=== PATIENT | male | born 1960 | race Caucasian/White ===

== ENCOUNTER → 2022-02-26 15:25 | Outpatient (BNVA) | payer SELFPAY | PROVIDERS: PCP Family Medicine; Visit Provider Thoracic Surgery (Cardiothoracic Vascular Surgery) | DX: Z01.89 Encounter for other specified special examinations (principal) | CPT/HCPCS: 87070 ==

== ENCOUNTER → 2023-02-12 09:29 | Outpatient (BNVA) | payer BC, SELFPAY | PROVIDERS: PCP Family Medicine; Visit Provider Nurse Practitioner Family | DX: L02.31 Cutaneous abscess of buttock (principal) | CPT/HCPCS: 87070 ==

== ENCOUNTER 2023-02-19 09:01 | Outpatient (CLI) | payer BC, MEDICAID, SELFPAY ==
[2023-02-19 09:24] LABS: Basophils % 0.2 %; Eosinophils # 0.2 10^3/uL (0.0-0.8); Eosinophils % 4.1 %; Hematocrit 36.9 % (42.0-52.0); Hemoglobin 11.7 g/dL (11.7-16.6); Lymphocytes # 0.8 10^3/uL (0.8-4.8); Lymphocytes % 17.9 %; Mean Corpuscular HGB Conc 31.7 g/dL (30.0-36.0); Mean Corpuscular Hemoglobin 29.7 pg (28.0-34.0); Mean Corpuscular Volume 93.7 fl (80-94); Mean Platelet Volume 10.6 fL (7.4-10.4); Monocytes # 0.4 10^3/uL (0.2-0.9); Neutrophils # 3.14 10^3/uL (1.8-7.7); Neutrophils % 67.1 %; Nucleated Red Blood Cells % 0 %; Platelet Count 151 10^3/cmm (130-400); Red Blood Count 3.94 10^6/uL (4.1-5.3); Red Cell Distribution Width 13.4 % (12.1-15.1); White Blood Count 4.7 10^3/uL (4.0-10.0)
[2023-02-19 09:47] LABS: Alanine Aminotransferase 15 U/L (0-41); Alkaline Phosphatase 161 U/L (40-130); Anion Gap 12.4 (5-19); Aspartate Amino Transferase 20 U/L (0-40); Blood Urea Nitrogen 21 mg/dL (8-23); Calcium 8.2 mg/dL (8.5-10.5); Carbon Dioxide 27 mmol/L (22-29); Chloride 96 mmol/L (98-107); Globulin 4.1 g/dL (1.3-4.6); Glomerular Filtration Rate 67.6 mL/min (90-130); Glucose 475 mg/dL (65-115); Osmolality Calculated 294 mOsm/kg (285-295); Potassium 5.4 mmol/L (3.5-5.1); Sodium 130 mmol/L (136-145); Total Bilirubin 0.3 mg/dL (0.15-1.2); Total Protein 7.1 g/dL (6.6-8.7)
== END 2023-02-19 09:02 | disposition home or self-care (01) ==
LOC: LAB 09:07
PROVIDERS: PCP Registered Nurse; Visit Provider Nurse Practitioner Family
DX: L02.31 Cutaneous abscess of buttock (principal)
CPT/HCPCS: 36415; 80053; 85025

== ENCOUNTER 2023-03-18 10:39 | Day surgery (SDC) | payer BC, MEDICAID, SELFPAY ==
[2023-03-15 15:48] VITALS: BMI 43.9
[2023-03-18] VITALS (9 sets, daily range): BP systolic 95–129; BP diastolic 59–79; PULSE 60–70; RESP 12–17; TEMP 36.1–36.3; O2SAT 94–100
[2023-03-18 11:20] LABS: Glucose Point of Care 276 mg/dL (70-110)
[2023-03-18] MEDS: sodium chloride 0.9% 1,000 ML 30 ML IV (11:26)
--- NOTE | 2023-03-18 11:56 | W.PM.OPSUD ---
Surgery/Procedure H&P Update DATE OF PROCEDURE: March 18, 2023 DATE H&P PERFORMED: 03/14/23 H&P UPDATE INFORMATION: I have reviewed H&P completed within last 30 days, I have examined patient prior to procedure and No changes to prior documentation PLANNED PROCEDURE: Operation Date: 03/18/23 13:30 Proposed Procedures p debridement of wound of left buttock 71029,T14.8XXA,L02.31(Left) - Finn Roberts DO
--- NOTE | 2023-03-18 12:56 | ANES.PREANE2 ---
Pre-Anesthetic Assessment Height/Weight: Height 1.75 m Weight 135.171 kg Temp Pulse Resp BP Pulse Ox O2 Del Method 97 F L 69 16 129/79 97 Room Air 03/18/23 11:22 03/18/23 11:22 03/18/23 11:22 03/18/23 11:22 03/18/23 11:22 03/18/23 11:22 Operation Date: 03/18/23 13:30 Proposed Procedures p debridement of wound of left buttock [id number],T14.8XXA,L02.31(Left) - Finn Roberts DO Familial anesthetic complications: none Was Beta Leigh taken within 24 hours: Yes Was Clonidine taken within 24 hours: N/A Last intake: Intake Last Liquid Date 03/18/23 Last Liquid Time 04:00 Last Solid Date 03/17/23 Last Solid Time 16:00 Social No alcohol and No tobacco Exam alert, oriented x 3, clear to auscultation bilaterally and regular rate & rhythm Airway Submandibular: within normal limits Cervical ROM: within normal limits Mallampati: Class II Dentition: chipped (everything chipped, very poor dentition) CV/HEM Hypertension Metabolic Hyperlipidemia and Morbid Obesity Anesthetic Plan ASA status: 3 Anesthesia: General Medications/Allergies Home Medications Medication Instructions Recorded Confirmed Last Taken Type hydrocodone 5 mg-acetaminophen 325 1 tab PO BID PRN pain 1 week #14 03/07/22 03/15/23 03/17/23 Rx mg tablet tabs aspirin 81 mg capsule 81 mg PO DAILY 03/14/23 03/15/23 03/17/23 History furosemide 40 mg tablet 40 mg PO BID 03/14/23 03/15/23 03/17/23 History glipizide 10 mg tablet 10 mg PO BID 03/14/23 03/15/23 03/16/23 History metoprolol succinate 50 mg 50 mg PO DAILY 03/14/23 03/15/23 03/18/23 History tablet,extended release 24 hr sacubitril 49 mg-valsartan 51 mg 1 tab PO BID 03/14/23 03/15/23 03/18/23 History tablet (Entresto) simvastatin 20 mg tablet 20 mg PO DAILY 03/14/23 03/15/23 03/17/23 History spironolactone 25 mg tablet 25 mg PO DAILY 03/14/23 03/15/2303/17/23 History Allergies Allergy/AdvReac Type Severity Reaction Status Date / Time No Known Drug Allergies Allergy Unknown Verified 02/19/22 14:58 Current Medications Generic Name Dose Route Start Last Admin Trade Name Michaelq PRN Reason Stop Dose Admin Sodium Chloride 1,000 mls @ 30 mls/hr 03/18/23 11:00 03/18/23 11:26 Sodium Chloride 0.9% IV 03/19/23 10:59 30 mls/hr .Q24H JES Administration PFSH Anesthesia Family History Father CHF (congestive heart failure) Social History Smoking and tobacco status: never smoked Alcohol intake: current Alcohol intake frequency: holidays/special occasions only Data Anesthesia Cardiac Studies: No Data to Display
[2023-03-18] MEDS: ceFAZolin 2,000 MG in sodium chloride 0.9% (plus) 50 ML 100 MG IV (13:55)
[2023-03-18] MEDS: lidocaine-epi 2% 20 mL INJ INJECTION (14:50)
--- NOTE | 2023-03-18 14:50 | PM.OP ---
Operative Report Date of procedure: March 18, 2023 Pre-op diagnosis: Chronic wound left buttock Post-op diagnosis: same Procedure done: Sharp excisional debridement of chronic wound left buttock 10 cm x 6 cm x 2 cm deep Implants: Curlex dressing Specimens removed/disposition: Calcified fibrinous tissue Surgeon: Dr. Finn Roberts DO Anesthesia: General Estimated blood loss (mL): 20 Complications: None apparent Brief History: This is a very pleasant 62-year-old gentleman who presented to my office with a chronic wound of his left buttock. Debridement was indicated. The risk and benefits were explained and documented. Procedure: Patient was wheeled in operative room and remained in his hospital bed. General tracheal intubation was achieved by the department of anesthesia. He was put into the right lateral decubitus position. A timeout was performed. All present were in agreement. The left buttock was inspected prepped and draped in usual sterile fashion. A metal probe was then inserted into the wound and it tracked 10 cm medially. 2% lidocaine with epinephrine was used to anesthetize the skin over this tract. A 10 blade scalpel was then used to incise this 10 cm tract. Electrocautery was used to dissect down to an open pocket there is an open pocket about 1 and half to 2 cm deep that measured 10 cm in length and 6 cm in width. It tunnels 5 cm cephalad. There was some purulent material in this pocket along with a significant amount of calcified fibrinous tissue. The tissue was debrided with Bovie cautery and curettes. Only healthy pink bleeding tissue was left. Electrocautery was used to maintain hemostasis. The wound was irrigated and then packed with wet Kerlix covered by dry 4 x 4 gauze and an ABD. Patient tolerated procedure well.
--- NOTE | 2023-03-18 15:39 | ANE.PACU2 ---
Inpatient post-anesthesia follow up: Airway intact: Yes Vital signs: Temperature 97.4 F Pulse Rate 69 Respiratory Rate 16 Blood Pressure 103/66 Pulse Oximetry 99 Oxygen Delivery Me thod Room Air Oxygen Flow Rate 6 Fraction of Inspir ed Oxygen Hydration adequate: Yes Nausea and vomiting: No Pain level: 3 Mental status: Baseline
[2023-03-18] MEDS: HYDROcodone-acetaminophen 10-325 mg Tablet 1 TAB PO (15:51)
== END 2023-03-18 15:59 | disposition home or self-care (01) ==
PROVIDERS: PCP Registered Nurse; Visit Provider Surgery
PROC: (CPT 11042; principal; 2023-03-18 13:20)
DX: L02.31 Cutaneous abscess of buttock (principal); I10 Essential (primary) hypertension; E78.5 Hyperlipidemia, unspecified; E66.01 Morbid (severe) obesity due to excess calories; Z68.41 Body mass index [BMI] 40.0-44.9, adult; Z79.85 Long-term (current) use of injectable non-insulin antidiabetic drugs; Z79.891 Long term (current) use of opiate analgesic
CPT/HCPCS: 11042; 11045 ×2; 36416; 82962; 87070; 87075; 87077; 87176; 87186; 87205; J0690; J2371; J2704; J3010; J7030

== ENCOUNTER → 2025-03-30 12:57 | Outpatient (BNVA) | payer MEDICARE, MEDICAID, SELFPAY | PROVIDERS: PCP Registered Nurse; Visit Provider Thoracic Surgery (Cardiothoracic Vascular Surgery) | DX: E11.52 Type 2 diabetes mellitus with diabetic peripheral angiopathy with gangrene (principal); E11.622 Type 2 diabetes mellitus with other skin ulcer; L97.811 Non-pressure chronic ulcer of other part of right lower leg limited to breakdown of skin; T87.81 Dehiscence of amputation stump; Y83.8 Other surgical procedures as the cause of abnormal reaction of the patient, or of later complication, without mention of misadventure at the time of the procedure; Z89.422 Acquired absence of other left toe(s) | CPT/HCPCS: 11042; 97597; A6197; A6252 ==

== ENCOUNTER → 2025-04-07 07:57 | Outpatient (BNVA) | payer MEDICARE, MEDICAID, SELFPAY | PROVIDERS: PCP Registered Nurse; Visit Provider Thoracic Surgery (Cardiothoracic Vascular Surgery) | DX: I96 Gangrene, not elsewhere classified (principal); T81.31XD Disruption of external operation (surgical) wound, not elsewhere classified, subsequent encounter; Y83.8 Other surgical procedures as the cause of abnormal reaction of the patient, or of later complication, without mention of misadventure at the time of the procedure | CPT/HCPCS: 97597 ==

== ENCOUNTER → 2025-04-14 07:53 | Outpatient (BNVA) | payer MEDICARE, MEDICAID, SELFPAY | PROVIDERS: PCP Registered Nurse; Visit Provider Thoracic Surgery (Cardiothoracic Vascular Surgery) | DX: E11.52 Type 2 diabetes mellitus with diabetic peripheral angiopathy with gangrene (principal); E11.622 Type 2 diabetes mellitus with other skin ulcer; L97.811 Non-pressure chronic ulcer of other part of right lower leg limited to breakdown of skin; T81.31XD Disruption of external operation (surgical) wound, not elsewhere classified, subsequent encounter; Y83.8 Other surgical procedures as the cause of abnormal reaction of the patient, or of later complication, without mention of misadventure at the time of the procedure | CPT/HCPCS: 11042; 97597 ==

== ENCOUNTER → 2025-04-21 07:57 | Outpatient (BNVA) | payer MEDICARE, MEDICAID, SELFPAY | PROVIDERS: PCP Registered Nurse; Visit Provider Thoracic Surgery (Cardiothoracic Vascular Surgery) | DX: I96 Gangrene, not elsewhere classified (principal); T81.31XD Disruption of external operation (surgical) wound, not elsewhere classified, subsequent encounter; Y83.8 Other surgical procedures as the cause of abnormal reaction of the patient, or of later complication, without mention of misadventure at the time of the procedure; Z09 Encounter for follow-up examination after completed treatment for conditions other than malignant neoplasm | CPT/HCPCS: 11042; 87070; 87176; 87205 ==

== ENCOUNTER → 2025-04-28 08:18 | Outpatient (BNVA) | payer MEDICARE, MEDICAID, SELFPAY | PROVIDERS: PCP Registered Nurse; Visit Provider Thoracic Surgery (Cardiothoracic Vascular Surgery) | DX: I96 Gangrene, not elsewhere classified (principal); T81.31XD Disruption of external operation (surgical) wound, not elsewhere classified, subsequent encounter; Y83.8 Other surgical procedures as the cause of abnormal reaction of the patient, or of later complication, without mention of misadventure at the time of the procedure | CPT/HCPCS: 97597 ==

== ENCOUNTER → 2025-05-05 08:06 | Outpatient (BNVA) | payer MEDICARE, MEDICAID, SELFPAY | PROVIDERS: PCP Registered Nurse; Visit Provider Thoracic Surgery (Cardiothoracic Vascular Surgery) | DX: I96 Gangrene, not elsewhere classified (principal); T81.31XD Disruption of external operation (surgical) wound, not elsewhere classified, subsequent encounter; Y83.8 Other surgical procedures as the cause of abnormal reaction of the patient, or of later complication, without mention of misadventure at the time of the procedure | CPT/HCPCS: 97597 ==

== ENCOUNTER → 2025-05-12 07:56 | Outpatient (BNVA) | payer MEDICARE, MEDICAID, SELFPAY | PROVIDERS: PCP Registered Nurse; Visit Provider Thoracic Surgery (Cardiothoracic Vascular Surgery) | DX: I96 Gangrene, not elsewhere classified (principal); T87.81 Dehiscence of amputation stump; Y83.8 Other surgical procedures as the cause of abnormal reaction of the patient, or of later complication, without mention of misadventure at the time of the procedure; Z89.422 Acquired absence of other left toe(s) | CPT/HCPCS: 97597 ==

== ENCOUNTER → 2025-05-19 08:05 | Outpatient (BNVA) | payer MEDICARE, MEDICAID, SELFPAY | PROVIDERS: PCP Registered Nurse; Visit Provider Thoracic Surgery (Cardiothoracic Vascular Surgery) | DX: I96 Gangrene, not elsewhere classified (principal); T81.31XD Disruption of external operation (surgical) wound, not elsewhere classified, subsequent encounter; Y83.8 Other surgical procedures as the cause of abnormal reaction of the patient, or of later complication, without mention of misadventure at the time of the procedure | CPT/HCPCS: 97597 ==

== ENCOUNTER → 2025-05-26 08:14 | Outpatient (BNVA) | payer MEDICARE, MEDICAID, SELFPAY | PROVIDERS: PCP Registered Nurse; Visit Provider Thoracic Surgery (Cardiothoracic Vascular Surgery) | DX: I96 Gangrene, not elsewhere classified (principal); T87.81 Dehiscence of amputation stump; Y83.8 Other surgical procedures as the cause of abnormal reaction of the patient, or of later complication, without mention of misadventure at the time of the procedure; Z89.422 Acquired absence of other left toe(s) | CPT/HCPCS: 97597; A6212 ==